=== PATIENT | male | born 1950 | race Caucasian/White ===

== ENCOUNTER 2020-04-17 06:38 | Outpatient (CLI) | payer MEDICARE, OTHER ==
[2020-04-17 12:40] LABS: Bilirubin Neg (Negative); Blood, Urine Negative (Negative); Clarity Clear (Clear); Glucose, Urine (Dipstick) Normal (Negative); Ketone, Urine Negative (Negative); Leukocyte 25 (Negative); Nitrite Negative (Negative); Protein, Urine (Dipstick) Negative (Neg-Trace); Specific Gravity, Urine 1.005 (1.002-1.036); Urobilinogen Normal mg/dL (Less than 2)
[2020-04-17 12:45] LABS: #Eosinphils 0.1 10x3/uL (0.0-0.5); #Monocytes 0.7 10x3/uL (0.0-1.1); #Neutrophils 5.2 10x3/uL (1.5-8.4); %Basophils 0.5 % (0.0-2.0); %Eosinophils 1.8 % (0.0-6.0); %Lymphocytes 20.7 % (18.0-47.0); %Monocytes 8.5 % (0.0-10.0); %Neutrophils 68.2 % (40.0-75.0); Mean Corpuscular HGB CONC 32.7 G/DL (32.0-36.0); Mean Corpuscular Hemoglobin 31.1 PG (27.0-33.0); Mean Corpuscular Volume 95.1 fl (80.0-100.0); Mean Platelet Volume 10.5 fl (7.4-10.4); Platelet Count 214 10x3/uL (130-400); RBC Distribution Width 13.2 % (11.5-14.5); Red Blood Cell (RBC) Count 5.14 10x6/uL (4.40-5.80); White Blood Cell (WBC) Count 7.7 10x3/uL (4.5-11.0)
[2020-04-17 13:03] LABS: Bacteria/HPF Rare-Few HPF (None Seen); RBC/HPF None Seen HPF (0-3); Squamous Epithelial 0-3 HPF (0-3); WBC/HPF 0-3 HPF (0-3)
[2020-04-18 15:02] LABS: SARS-CoV-2 MS2 Positive; SARS-CoV-2 N Gene Negative; SARS-CoV-2 S Gene Negative; SARS-CoV-2 by NAA Not Detected (NotDetected); SARS-CoV-2 orf1ab Negative
--- NOTE | 2020-04-20 20:53 | EKG ---
Test Reason : Blood Pressure : / mmHG Vent. Rate : 061 BPM Atrial Rate : 061 BPM P-R Int : 176 ms QRS Dur : 104 ms QT Int : 412 ms P-R-T Axes : 065 095 048 degrees QTc Int : 414 ms Normal sinus rhythm Rightward axis Borderline ECG No previous ECGs available Confirmed by Juan BARAJAS ([id number]) on 04/20/2020 8:53:08 PM Referred By: JACK Confirmed By:Juan BARAJAS
== END 2020-04-17 06:39 | disposition home or self-care (01) ==
LOC: LABBT 06:38
PROVIDERS: ATTEND Orthopaedic Surgery Hand Surgery
DX: Z01.818 Encounter for other preprocedural examination (principal); S56.415A Strain of extensor muscle, fascia and tendon of right ring finger at forearm level, initial encounter; Z20.828 Contact with and (suspected) exposure to other viral communicable diseases
CPT/HCPCS: 81001; 85025; 93005; U0003; 87635; 93010

== ENCOUNTER 2020-04-22 08:47 | Day surgery (SDC) | payer MEDICARE ==
[2020-04-21 09:55] VITALS: BMI 23.9
[2020-04-22] MEDS ORDERED: Neomycin-Polymyxin 1 ML AMP ONE (09:02)
[2020-04-22] MEDS ORDERED: Bacitracin Zinc Ointment 30 gm TUBE ONE (09:02)
[2020-04-22] MEDS ORDERED: Bupivacaine PF 0.5% 30 ML VIAL ONE ×2 (09:02→10:17)
[2020-04-22] MEDS ORDERED: Midazolam HCl 5 mg/5 ml Vial ONE (09:53)
[2020-04-22] MEDS ORDERED: Fentanyl 100 MCG/2 ML VIAL ONE (09:53)
[2020-04-22] MEDS ORDERED: Midazolam HCl 2 mg/2 ml Vial ONE (09:54)
[2020-04-22] MEDS ORDERED: Lidocaine 1% PF 5 ML VIAL ONE (10:33)
[2020-04-22] MEDS ORDERED: Ondansetron PF 4 MG/2 ML Vial ONE (10:33)
[2020-04-22] MEDS ORDERED: PROPOFOL 200 MG/20 ML VIAL ONE (10:33)
--- NOTE | 2020-04-22 11:07 | RAD ---
EXAM: 3 views of the right fourth finger HISTORY: Fourth digit pinning COMPARISON: None FINDINGS: Limited fluoroscopic views show the patient is status post K wire pinning of the DIP joint of the fourth finger. No dislocation is seen. No obvious fracture is seen on this limited fluoroscopic view. IMPRESSION: Pinning of the DIP joint of fourth finger
[2020-04-22] MEDS ORDERED: Ketorolac Tromethamine 30 MG/ML VIAL ONE (11:44)
--- NOTE | 2020-04-22 14:21 | OP ---
DATE OF PROCEDURE: 04/22/2020 PREOPERATIVE DIAGNOSIS: Right ring finger extensor tendon partial rupture, zone 1. FINDINGS: Elongated tendon area with redundancy of approximately 2 to 2.5 mm wide segment transversely over the joint line. PROCEDURES PERFORMED: Extensor tendon repair with tenotomy of the redundant section and distal interphalangeal joint pinning under C-arm supervision. SPECIMEN: None. ESTIMATED BLOOD LOSS: 5 mL. TOURNIQUET TIME: 34 minutes. INDICATIONS: The patient had a mallet finger without bony abnormality and with a congruent joint, but totally lacked the last 30 degrees of active extension. This did not resolve with splinting, and thus, operative intervention was indicated. DESCRIPTION OF PROCEDURE: After successful general LMA technique augmented by 20 mL of 0.5% Marcaine at the metacarpophalangeal joint level of the right ring finger, the patient had a limb exsanguinated, tourniquet inflated, and time-out done appropriately. Before we made the incision, he had 10 mL of 0.5% Marcaine given prior to incision and he had another 10 given after incision was closed. We carried the incision through skin and subcutaneous tissue in a Pelon type lazy-S modifier fashion until we had explored 1 cm of joint distal and 15 mm of joint proximal to the central part of the incision. We then flexed the finger several times to identify the redundant segment, extended at the finger and held it extended, removed the 2 mm of redundant tissue and then pinned the joint under C-arm supervision with 0.045 K-wire into neutral position in the sagittal plane. No angulation seen in the frontal plane. We then had the resected tendon ends coapted until they touched with an interrupted [id number] suture buried, which we did x5 across the tendon face until the tendon was touching . We then cut the wire 1 to 2 mm below the skin using a small wired sweatband cutter, took the final C-arm pictures, released the tourniquet, obtained hemostasis. We closed the incision with interrupted 4-0 nylon, which we then 10 mL MCP joint level block. The patient left the operating room without evidence of anesthetic or operative complication. Job ID: [id number]
== END 2020-04-22 14:18 | disposition home or self-care (01) ==
LOC: SDC 08:47
PROVIDERS: ATTEND Orthopaedic Surgery Hand Surgery
PROC: 0LQ70ZZ Repair Right Hand Tendon, Open Approach (ICD-10-PCS; principal; 2020-04-22)
DX: S66.314A Strain of extensor muscle, fascia and tendon of right ring finger at wrist and hand level, initial encounter (principal); M65.312 Trigger thumb, left thumb; E03.9 Hypothyroidism, unspecified; M19.90 Unspecified osteoarthritis, unspecified site; Z87.891 Personal history of nicotine dependence; Z79.899 Other long term (current) drug therapy; Z88.8 Allergy status to other drugs, medicaments and biological substances; X50.9XXA Other and unspecified overexertion or strenuous movements or postures, initial encounter; Y93.H2 Activity, gardening and landscaping
CPT/HCPCS: 76000; J0690; J1885; J2250; J2405; J2704; J3010; S0020

== ENCOUNTER 2020-12-08 15:16 | Outpatient (CLI) | payer MEDICARE | END 2020-12-08 15:17 | disposition home or self-care (01) | LOC: BICMRI 15:16 | PROVIDERS: ATTEND Anesthesiology Pain Medicine | DX: M51.16 Intervertebral disc disorders with radiculopathy, lumbar region (principal); M48.061 Spinal stenosis, lumbar region without neurogenic claudication; M47.26 Other spondylosis with radiculopathy, lumbar region | CPT/HCPCS: 72148 ==

== ENCOUNTER 2021-06-09 12:46 | Outpatient (CLI) | payer MEDICARE | END 2021-06-09 12:47 | disposition home or self-care (01) | LOC: CT 12:46 | PROVIDERS: ATTEND Otolaryngology Plastic Surgery within the Head & Neck | DX: Z08 Encounter for follow-up examination after completed treatment for malignant neoplasm (principal); R22.1 Localized swelling, mass and lump, neck; K11.0 Atrophy of salivary gland; M48.02 Spinal stenosis, cervical region; M50.322 Other cervical disc degeneration at C5-C6 level; M25.78 Osteophyte, vertebrae | CPT/HCPCS: 70491; 82565 ==

== ENCOUNTER 2023-01-06 09:05 | Outpatient (CLI) | payer MEDICARE ==
[2023-01-06] MEDS ORDERED: Iopamidol 370 76% 100 ML VIAL ONE (15:09)
== END 2023-01-06 09:06 | disposition home or self-care (01) ==
LOC: CT 09:05
PROVIDERS: ATTEND Family Medicine
DX: R91.8 Other nonspecific abnormal finding of lung field (principal)
CPT/HCPCS: 71270; Q9967

== ENCOUNTER 2025-01-16 11:04 | Outpatient (CLI) | payer MEDICARE | END 2025-01-16 11:05 | disposition home or self-care (01) | LOC: ULT 11:04 | PROVIDERS: ATTEND Family Medicine | DX: R10.11 Right upper quadrant pain (principal); N28.1 Cyst of kidney, acquired; K86.89 Other specified diseases of pancreas; Z90.49 Acquired absence of other specified parts of digestive tract | CPT/HCPCS: 76705 ==

== ENCOUNTER 2025-01-17 09:13 | Day surgery (SDC) | payer MEDICARE ==
[2025-01-17] MEDS ORDERED: LevoFLOXacin D5W 500 mg (100 mL) BAG ONE (10:26)
[2025-01-17] MEDS ORDERED: PROPOFOL 20 ML ONE (10:27)
[2025-01-17] MEDS ORDERED: Rocuronium Bromide 10 MG/ML (10ML VIAL) ONE (10:27)
[2025-01-17] MEDS ORDERED: fentaNYL PF 100 MCG/2 ML SYRINGE ONE ×2 (10:27→11:56)
[2025-01-17] MEDS ORDERED: Iopamidol 100 ML FS ONE (10:30)
[2025-01-17] MEDS ORDERED: SUGAMMADEX SODIUM 200 MG/2 ML VIAL ONE ×2 (10:30→10:51)
[2025-01-17] MEDS ORDERED: Ondansetron PF 4 MG/2 ML Vial ONE (10:30)
[2025-01-17] MEDS ORDERED: hydrALAZINE 20 MG/ML VIAL ONE (11:09)
[2025-01-17] MEDS ORDERED: HYDROmorphone 0.5 MG/0.5 ML SYRINGE ONE (12:35)
== END 2025-01-17 16:32 | disposition home or self-care (01) ==
LOC: SDC 09:13
PROVIDERS: ATTEND Internal Medicine Gastroenterology
PROC: 0FW Hepatobiliary System and Pancreas, Revision (ICD-10-PCS; principal; 2025-01-17)
PROC: 0F798ZZ Dilation of Common Bile Duct, Via Natural or Artificial Opening Endoscopic (ICD-10-PCS; 2025-01-17)
DX: K83.1 Obstruction of bile duct (principal); N18.9 Chronic kidney disease, unspecified; Z87.891 Personal history of nicotine dependence; R79.89 Other specified abnormal findings of blood chemistry
CPT/HCPCS: 43262; 43276; 43277; 74330; 82787; 83690; 86301; C2625; J0360; J1100; J1171; J1956; J2405; J2550; J2704; J3010; Q9967; 36415

== ENCOUNTER 2025-01-19 10:19 | Inpatient (IN) | payer MEDICARE ==
[2025-01-19] MEDS ORDERED: Ketorolac Tromethamine 30 MG (1 mL) VIAL ONE (10:50)
[2025-01-19 11:05] LABS: Hematocrit 42.8 % (42.0-52.0); Hemoglobin 14.2 g/dL (14.0-18.0); Mean Corpuscular Hemoglobin 30.9 pg (27.0-31.0); Mean Corpuscular Volume 93.2 fL (78.0-98.0); Platelet Count 125 10x3/uL (130-400); Red Blood Cell (RBC) Count 4.59 mill/uL (4.70-6.10); White Blood Cell (WBC) Count 5.97 10x3/uL (4.8-10.8)
[2025-01-19 11:10] LABS: ALT (SGPT) 350 U/L (Less than 45); AST (SGOT) 165 U/L (11-34); Albumin 3.6 g/dL (3.1-4.5); Alkaline Phosphatase 486 U/L (40-110); Anion Gap 12 mmol/L (10-20); BUN (Urea Nitrogen) 13 mg/dL (8.4-25.7); Bilirubin, Total 1.5 mg/dL (0.3-1.2); Calc. Creatinine Clearance 0 mL/min (70-130); Calcium 9.2 mg/dL (7.8-10.44); Carbon Dioxide 23 mmol/L (23-31); Chloride 109 mmol/L (98-107); Globulin 3.2 g/dL (2.4-3.5); Glucose 116 mg/dL (83-110); Lipase 38 U/L (8-78); Potassium 4.1 mmol/L (3.5-5.1); Sodium 140 mmol/L (136-145)
[2025-01-19 11:13] LABS: Troponin I 0.020 ng/mL (< 0.028)
[2025-01-19 11:36] LABS: Anisocytosis MARKED = >30 cells HPF (0-5); Burr Cells SLIGHT = 2-5 cells HPF (0-1); Macrocytosis MODERATE=16-30 cells HPF (0-5); Ovalocytes SLIGHT = 2-5 cells HPF (0-1); Platelet Adequacy Comment Platelets Decreased
[2025-01-19 12:10] LABS: Bacteria/HPF None Seen HPF (None Seen); CAUTI Indications for Culture Pelvic or flank pain; Glucose, Urine (Dipstick) Normal (Negative); Leukocyte Negative Leu/uL (Negative); Protein, Urine (Dipstick) Negative (Neg-Trace); RBC/HPF 0-3 HPF (0-3); Specific Gravity, Urine 1.009 (1.002-1.036); WBC/HPF 0-3 HPF (0-3)
[2025-01-19 12:12] LABS: Urine Culture Reflex No No
[2025-01-19] MEDS ORDERED: Iopamidol 370 76% 100 ML VIAL ONE (13:17)
[2025-01-19] MEDS ORDERED: Melatonin 3 MG TAB PO PRN (15:10)
[2025-01-19] MEDS ORDERED: oxyCODONE 5 MG TAB PO PRN (15:15)
[2025-01-19] MEDS ORDERED: Electrolyte Replacement Protocol 1 EACH FS SCH (15:15)
[2025-01-19 17:42] VITALS: BMI 23.9
[2025-01-19] MEDS: hydrALAZINE 20 MG/ML VIAL SLOW IVP PRN (18:03)
[2025-01-19] MEDS: Senokot S 8.6-50 MG TAB PO SCH (20:34)
[2025-01-19] MEDS ORDERED: Famotidine 20 MG TAB PO SCH (21:00)
[2025-01-19] MEDS: Ketorolac Tromethamine 30 MG (1 mL) VIAL IVP PRN (22:43)
[2025-01-19] MEDS: Ondansetron PF 4 MG/2 ML Vial IVP PRN (23:16)
[2025-01-20 04:04] LABS: #Basophils Less than 0.03 10x3/uL (0.0-0.2); #Eosinophils 0.16 10x3/uL (0.0-0.7); #Monocytes 0.49 10x3/uL (0.11-0.59); #Neutrophils 3.58 10x3/uL (1.40-6.50); %Basophils 0.4 % (0.0-1.0); %Eosinophils 3.2 % (0.0-10.0); %Lymphocytes 15.3 % (21.0-51.0); %Monocytes 9.7 % (0.0-10.0); %Neutrophils 71.0 % (42.0-75.0); Hematocrit 37.9 % (42.0-52.0); Hemoglobin 12.3 g/dL (14.0-18.0); Mean Corpuscular Hemoglobin 30.7 pg (27.0-31.0); Mean Corpuscular Volume 94.5 fL (78.0-98.0); Platelet Count 113 10x3/uL (130-400); Red Blood Cell (RBC) Count 4.01 mill/uL (4.70-6.10); White Blood Cell (WBC) Count 5.04 10x3/uL (4.8-10.8)
[2025-01-20 05:02] LABS: ALT (SGPT) 258 U/L (Less than 45); AST (SGOT) 111 U/L (11-34); Albumin 2.9 g/dL (3.1-4.5); Alkaline Phosphatase 368 U/L (40-110); Anion Gap 11 mmol/L (10-20); BUN (Urea Nitrogen) 11 mg/dL (8.4-25.7); Bilirubin, Total 1.1 mg/dL (0.3-1.2); Calc. Creatinine Clearance 69 mL/min (70-130); Calcium 7.8 mg/dL (7.8-10.44); Carbon Dioxide 21 mmol/L (23-31); Chloride 111 mmol/L (98-107); Globulin 2.5 g/dL (2.4-3.5); Glucose 109 mg/dL (83-110); Lipase 12 U/L (8-78); Potassium 3.6 mmol/L (3.5-5.1); Sodium 139 mmol/L (136-145)
[2025-01-20] MEDS: Enoxaparin 40 MG (0.4 mL) SYRINGE SC SCH (08:18)
[2025-01-20] MEDS: Acetaminophen 325 MG TAB PO PRN (08:19)
[2025-01-20] MEDS: Pantoprazole 40 MG VIAL IVP SCH (08:19)
[2025-01-21] MEDS: hydrALAZINE 20 MG/ML VIAL SLOW IVP SCH (11:32)
[2025-01-21 12:06] LABS: ALT (SGPT) 222 U/L (Less than 45); AST (SGOT) 71 U/L (11-34); Albumin 3.6 g/dL (3.1-4.5); Alkaline Phosphatase 382 U/L (40-110); Anion Gap 14 mmol/L (10-20); BUN (Urea Nitrogen) 9 mg/dL (8.4-25.7); Bilirubin, Total 1.1 mg/dL (0.3-1.2); Calc. Creatinine Clearance 59 mL/min (70-130); Calcium 8.9 mg/dL (7.8-10.44); Carbon Dioxide 24 mmol/L (23-31); Chloride 106 mmol/L (98-107); Globulin 3.0 g/dL (2.4-3.5); Glucose 141 mg/dL (83-110); Potassium 3.6 mmol/L (3.5-5.1); Sodium 140 mmol/L (136-145)
[2025-01-21 15:35] VITALS: BP 133/73; TEMP 99.5
[2025-01-21] MEDS: Mineral Oil ENEMA PR SCH (16:26)
[2025-01-21] MEDS ORDERED: Lactulose 20 GM (30 mL) UDCUP PO PRN (16:38)
== END 2025-01-21 19:46 | disposition home or self-care (01) | DRG 438 ==
LOC: ERS 10:19 → 2SE 15:10
PROVIDERS: ADMIT Internal Medicine; ATTEND Family Medicine
DX: K85.90 Acute pancreatitis without necrosis or infection, unspecified (principal); K83.1 Obstruction of bile duct; K59.00 Constipation, unspecified; E03.9 Hypothyroidism, unspecified; Z79.899 Other long term (current) drug therapy; Z90.89 Acquired absence of other organs; Z90.49 Acquired absence of other specified parts of digestive tract; K31.84 Gastroparesis
CPT/HCPCS: 36415; 74177; 74183; 76376; 76705; 80053; 81001; 83690; 84484; 85025; 93005; 96374; J0360; J1650; J1885; J2405; J2470; J3010; J7030; Q9967

== ENCOUNTER 2025-02-02 13:58 | Emergency (ER) | payer MEDICARE ==
[~2025-02-02 13:58] MED LIST: Iopamidol 370 76% 100 ML VIAL ONE
[2025-02-02] MEDS ORDERED: Ondansetron PF 4 MG/2 ML Vial ONE (14:49)
[2025-02-02 15:00] LABS: #Basophils 0.03 10x3/uL (0.0-0.2); #Eosinophils Less than 0.03 10x3/uL (0.0-0.7); #Monocytes 0.36 10x3/uL (0.11-0.59); #Neutrophils 15.62 10x3/uL (1.40-6.50); %Basophils 0.2 % (0.0-1.0); %Eosinophils 0.0 % (0.0-10.0); %Lymphocytes 1.2 % (21.0-51.0); %Monocytes 2.2 % (0.0-10.0); %Neutrophils 95.8 % (42.0-75.0); Hematocrit 40.6 % (42.0-52.0); Hemoglobin 13.7 g/dL (14.0-18.0); Mean Corpuscular Hemoglobin 30.5 pg (27.0-31.0); Mean Corpuscular Volume 90.4 fL (78.0-98.0); Platelet Count 116 10x3/uL (130-400); Red Blood Cell (RBC) Count 4.49 mill/uL (4.70-6.10); White Blood Cell (WBC) Count 16.29 10x3/uL (4.8-10.8)
[2025-02-02 15:09] LABS: INR-International Normal Ratio 1.3; PTT 27.9 sec (22.9-36.1); Prothrombin Time 16.7 sec (12.0-14.7)
[2025-02-02 15:12] LABS: ALT (SGPT) 255 U/L (Less than 45); AST (SGOT) 316 U/L (11-34); Albumin 3.6 g/dL (3.1-4.5); Alkaline Phosphatase 408 U/L (40-110); Anion Gap 15 mmol/L (10-20); BUN (Urea Nitrogen) 12 mg/dL (8.4-25.7); Bilirubin, Total 4.7 mg/dL (0.3-1.2); Calc. Creatinine Clearance 0 mL/min (70-130); Calcium 9.3 mg/dL (7.8-10.44); Carbon Dioxide 21 mmol/L (23-31); Chloride 103 mmol/L (98-107); Globulin 2.9 g/dL (2.4-3.5); Glucose 170 mg/dL (83-110); Lipase 47 U/L (8-78); Potassium 3.3 mmol/L (3.5-5.1); Sodium 136 mmol/L (136-145)
[2025-02-02] MEDS ORDERED: Azithromycin 500 MG VIAL ONE (17:16)
[2025-02-02 19:31] LABS: Bacteria/HPF None Seen HPF (None Seen); CAUTI Indications for Culture Pelvic or flank pain; Glucose, Urine (Dipstick) Normal (Negative); Leukocyte 25 Leu/uL (Negative); Protein, Urine (Dipstick) Negative (Neg-Trace); RBC/HPF 0-3 HPF (0-3); Specific Gravity, Urine 1.043 (1.002-1.036)
[2025-02-02 19:36] LABS: Urine Culture Reflex No No
[2025-02-02] MEDS ORDERED: Vancomycin 1.5 GM / NS 500ML VIAL-2-BAG IVPB SCH (21:00)
== END 2025-02-02 22:30 | disposition short-term general hospital (02) ==
LOC: ERS 13:58
DX: A41.9 Sepsis, unspecified organism (principal); K83.1 Obstruction of bile duct; R09.02 Hypoxemia; K86.89 Other specified diseases of pancreas; J18.9 Pneumonia, unspecified organism; Z87.891 Personal history of nicotine dependence
CPT/HCPCS: 71045; 71275; 74177; 80053; 81001; 82248; 82977; 83605; 83690; 84484; 85025; 85610; 85730; 87040; 87077; 87149 ×2; 87186; 87426; 93005; J0456; J2270; J2405; J2543; J7030; Q9967; 36415; 96365; 96366; 96367; 96375; 96376

== ENCOUNTER 2025-02-25 17:30 | Inpatient (IN) | payer MEDICARE ==
[2025-02-25] MEDS ORDERED: levETIRAcetam 500 MG (5 mL) VIAL ONE (17:58)
[2025-02-25 20:15] LABS: #Basophils 0.03 10x3/uL (0.0-0.2); #Eosinophils 0.03 10x3/uL (0.0-0.7); #Monocytes 0.75 10x3/uL (0.11-0.59); #Neutrophils 5.92 10x3/uL (1.40-6.50); %Basophils 0.4 % (0.0-1.0); %Eosinophils 0.4 % (0.0-10.0); %Lymphocytes 8.5 % (21.0-51.0); %Monocytes 10.1 % (0.0-10.0); %Neutrophils 80.1 % (42.0-75.0); Hematocrit 32.3 % (42.0-52.0); Hemoglobin 11.2 g/dL (14.0-18.0); Mean Corpuscular Hemoglobin 29.7 pg (27.0-31.0); Mean Corpuscular Volume 85.7 fL (78.0-98.0); Platelet Count 190 10x3/uL (130-400); Red Blood Cell (RBC) Count 3.77 mill/uL (4.70-6.10); White Blood Cell (WBC) Count 7.40 10x3/uL (4.8-10.8)
[2025-02-25 21:46] LABS: ALT (SGPT) 43 U/L (Less than 45); AST (SGOT) 95 U/L (11-34); Albumin 2.1 g/dL (3.1-4.5); Alkaline Phosphatase 335 U/L (40-110); Anion Gap 13 mmol/L (10-20); BUN (Urea Nitrogen) 14 mg/dL (8.4-25.7); Bilirubin, Total 2.3 mg/dL (0.3-1.2); Calc. Creatinine Clearance 0 mL/min (70-130); Calcium 7.7 mg/dL (7.8-10.44); Carbon Dioxide 25 mmol/L (23-31); Chloride 95 mmol/L (98-107); Globulin 2.7 g/dL (2.4-3.5); Glucose 114 mg/dL (83-110); Lipase 11 U/L (8-78); Magnesium 1.3 mg/dL (1.6-2.6); Potassium 2.7 mmol/L (3.5-5.1); Sodium 130 mmol/L (136-145)
[2025-02-25] MEDS ORDERED: Magnesium 2 GM/50 ML BAG (IN WATER) ONE (22:45)
[2025-02-25] MEDS ORDERED: Melatonin 3 MG TAB PO PRN (22:47)
[2025-02-25] MEDS ORDERED: Ondansetron PF 4 MG/2 ML Vial IVP PRN (22:47)
[2025-02-25] MEDS ORDERED: Acetaminophen/Codeine 30-300mg Tablet PO PRN (22:47)
[2025-02-25] MEDS ORDERED: Calcium Carbonate 500 MG ChewTAB PO PRN (22:47)
[2025-02-25] MEDS ORDERED: Senokot S 8.6-50 MG TAB PO PRN (22:47)
[2025-02-25] MEDS ORDERED: Electrolyte Replacement Protocol 1 EACH FS SCH (23:00)
[2025-02-26] MEDS: NS 0.9% w/ 40 MEQ KCL 1,000 ML IV SCH (04:14)
[2025-02-26 04:19] VITALS: BMI 24.5
[2025-02-26 04:40] LABS: Iron 68 ug/dL (65-175); Iron Binding Capacity, Total 214 mcg/dL (261-462)
[2025-02-26 04:41] LABS: ALT (SGPT) 49 U/L (Less than 45); AST (SGOT) 109 U/L (11-34); Albumin 2.4 g/dL (3.1-4.5); Alkaline Phosphatase 380 U/L (40-110); Anion Gap 13 mmol/L (10-20); BUN (Urea Nitrogen) 12 mg/dL (8.4-25.7); Bilirubin, Total 2.7 mg/dL (0.3-1.2); Calc. Creatinine Clearance 57 mL/min (70-130); Calcium 7.8 mg/dL (7.8-10.44); Carbon Dioxide 23 mmol/L (23-31); Chloride 97 mmol/L (98-107); Globulin 3.3 g/dL (2.4-3.5); Glucose 101 mg/dL (83-110); Iron 67 ug/dL (65-175); Iron Binding Capacity, Total 209 mcg/dL (261-462); Potassium 3.1 mmol/L (3.5-5.1); Sodium 130 mmol/L (136-145)
[2025-02-26 04:55] LABS: #Basophils 0.03 10x3/uL (0.0-0.2); #Eosinophils 0.10 10x3/uL (0.0-0.7); #Monocytes 0.85 10x3/uL (0.11-0.59); #Neutrophils 5.06 10x3/uL (1.40-6.50); %Basophils 0.4 % (0.0-1.0); %Eosinophils 1.4 % (0.0-10.0); %Lymphocytes 12.3 % (21.0-51.0); %Monocytes 12.3 % (0.0-10.0); %Neutrophils 73.2 % (42.0-75.0); Hematocrit 33.8 % (42.0-52.0); Hemoglobin 11.4 g/dL (14.0-18.0); Mean Corpuscular Hemoglobin 29.1 pg (27.0-31.0); Mean Corpuscular Volume 86.2 fL (78.0-98.0); Platelet Count 122 10x3/uL (130-400); Red Blood Cell (RBC) Count 3.92 mill/uL (4.70-6.10); White Blood Cell (WBC) Count 6.92 10x3/uL (4.8-10.8)
[2025-02-26 05:09] LABS: Ferritin 516.6 ng/mL (22-322); Vitamin B12 1875.0 pg/mL (211-911)
[2025-02-26] MEDS ORDERED: CANNABIDIOL 100 MG/ML TOP SCH (09:00)
[2025-02-26] MEDS: Enoxaparin 40 MG (0.4 mL) SYRINGE SC SCH (09:05)
[2025-02-26 13:28] LABS: Anion Gap 10 mmol/L (10-20); BUN (Urea Nitrogen) 12 mg/dL (8.4-25.7); Calc. Creatinine Clearance 55 mL/min (70-130); Calcium 7.8 mg/dL (7.8-10.44); Carbon Dioxide 25 mmol/L (23-31); Chloride 101 mmol/L (98-107); Glucose 99 mg/dL (83-110); Potassium 3.6 mmol/L (3.5-5.1); Sodium 132 mmol/L (136-145)
[2025-02-26] MEDS: levETIRAcetam 500 mg/5 ml Oral Solution PO SCH (16:17)
[2025-02-26] MEDS: Senokot S 8.6-50 MG TAB PO SCH (16:18)
[2025-02-26] MEDS: metroNIDAZOLE 500 MG TAB PO SCH (16:18)
[2025-02-26] MEDS: Pantoprazole 40 MG DR.TAB PO SCH (16:18)
[2025-02-27 12:15] VITALS: BP 114/67; TEMP 97.5
== END 2025-02-27 14:53 | disposition home or self-care (01) | DRG 100 ==
LOC: ERS 17:30 → PCU 02-26 00:47
PROVIDERS: ADMIT Internal Medicine; ATTEND Internal Medicine
DX: R56.9 Unspecified convulsions (principal); K75.0 Abscess of liver; C25.9 Malignant neoplasm of pancreas, unspecified; E87.6 Hypokalemia; E83.42 Hypomagnesemia; I95.9 Hypotension, unspecified; D63.8 Anemia in other chronic diseases classified elsewhere; R74.01 Elevation of levels of liver transaminase levels; E03.9 Hypothyroidism, unspecified; C02.9 Malignant neoplasm of tongue, unspecified; H40.9 Unspecified glaucoma; K59.09 Other constipation; Z98.890 Other specified postprocedural states; Z85.828 Personal history of other malignant neoplasm of skin; Z90.49 Acquired absence of other specified parts of digestive tract; Z87.891 Personal history of nicotine dependence; Z79.899 Other long term (current) drug therapy; Z79.890 Hormone replacement therapy; Z90.89 Acquired absence of other organs
CPT/HCPCS: 36415; 70450; 70553; 76376; 80053; 82550; 82607; 82728; 83540; 83550; 83605; 83690; 83735; 84484; 85025; 87040; 93005; 95700; 95711; 95957; J1650; J1953; J3475; J3480

== ENCOUNTER 2025-03-12 10:15 | Outpatient (CLI) | payer MEDICARE | END 2025-03-12 10:16 | disposition home or self-care (01) | LOC: PET 10:15 | PROVIDERS: ATTEND Internal Medicine Hematology & Oncology | DX: C25.0 Malignant neoplasm of head of pancreas (principal); C78.7 Secondary malignant neoplasm of liver and intrahepatic bile duct; R18.8 Other ascites; M43.9 Deforming dorsopathy, unspecified | CPT/HCPCS: 78815; A9552 ==

== ENCOUNTER 2025-05-28 09:44 | Day surgery (SDC) | payer MEDICARE ==
[2025-05-27 09:52] VITALS: BMI 19.5
[2025-05-28] MEDS ORDERED: GLYCOPYRROLATE/PF 0.2 MG/ML VIAL ONE (12:03)
[2025-05-28] MEDS ORDERED: PROPOFOL 20 ML ONE ×2 (12:03→12:11)
[2025-05-28] MEDS ORDERED: Lidocaine 2% PF 100 mg/5 ml Syringe ONE (12:03)
[2025-05-28] MEDS ORDERED: PHENYLEPHRINE-NS 100 MCG/ML 10 ML SYRINGE ONE ×2 (12:04→12:18)
[2025-05-28] MEDS ORDERED: PROPOFOL 200 MG/20 ML VIAL ONE (12:18)
== END 2025-05-28 15:10 | disposition home or self-care (01) ==
LOC: SDC 09:44
PROVIDERS: ATTEND Internal Medicine Gastroenterology
PROC: 0DB98ZX Excision of Duodenum, Via Natural or Artificial Opening Endoscopic, Diagnostic (ICD-10-PCS; principal; 2025-05-28)
DX: K29.50 Unspecified chronic gastritis without bleeding (principal); R13.10 Dysphagia, unspecified; N18.9 Chronic kidney disease, unspecified; K63.5 Polyp of colon; K64.9 Unspecified hemorrhoids; Z90.49 Acquired absence of other specified parts of digestive tract; Z90.89 Acquired absence of other organs; Z98.49 Cataract extraction status, unspecified eye; Z79.82 Long term (current) use of aspirin; Z79.899 Other long term (current) drug therapy; Z87.891 Personal history of nicotine dependence
CPT/HCPCS: 43239; J1642; J2003; J2704; J3490; 88305; 88342; J3010